=== PATIENT | male | born 1945 | race Caucasian/White ===

== ENCOUNTER 2024-06-04 03:49 | Emergency (ER) | payer BC ==
[2024-06-04 04:18] LABS: Bilirubin Negative (Negative); Blood, Urine Moderate (Negative); Clarity Clear (Clear); Glucose, Urine (Dipstick) Negative (Negative); Ketone, Urine Negative (Negative); Leukocyte Negative (Negative); Nitrite Negative (Negative); Protein, Urine (Dipstick) Negative (Neg-Trace); Urobilinogen 0.2 mg/dL (Less than 2)
[2024-06-04 04:21] LABS: Bacteria/HPF None Seen HPF (None Seen); CAUTI Indications for Culture Dysuria,urgency,freq; Squamous Epithelial None Seen HPF (0-3); Urine Culture Reflex No No; WBC/HPF None Seen HPF (0-3)
== END 2024-06-04 04:36 | disposition home or self-care (01) ==
LOC: NAV ERS 03:49
DX: R33.9 Retention of urine, unspecified (principal); R39.11 Hesitancy of micturition
CPT/HCPCS: 51702; 81001; 99283

== ENCOUNTER 2024-10-30 01:15 | Emergency (ER) | payer BC ==
[2024-10-30] MEDS ORDERED: Bisacodyl 10 MG SUPP ONE (01:35)
[2024-10-30 01:50] LABS: Clarity Clear (Clear); Leukocyte Negative (Negative); Protein, Urine (Dipstick) 30 mg/dL (Neg-Trace)
[2024-10-30 01:51] LABS: Blood, Urine Unable to Interpret (Negative); Nitrite Unable to Interpret (Negative)
[2024-10-30 01:52] LABS: Bacteria/HPF Rare-Few HPF (None Seen); Bilirubin Unable to Interpret (Negative); CAUTI Indications for Culture Dysuria,urgency,freq; Glucose, Urine (Dipstick) Unable to Interpret mg/dL (Negative); Ketone, Urine Unable to Interpret mg/dL (Negative); RBC/HPF Greater than 50 HPF (0-3); Squamous Epithelial None Seen HPF (0-3); Urobilinogen UNABLE TO INTERPRET mg/dL (Less than 2); WBC/HPF 0-3 HPF (0-3)
[2024-10-30 01:53] LABS: Urine Culture Reflex No No
[2024-10-30] MEDS ORDERED: Polyethylene Glycol 3350 17 GM Packet ONE (01:58)
[2024-10-30] MEDS ORDERED: Simethicone Chewable 80 MG TAB PO SCH (02:30)
== END 2024-10-30 02:34 | disposition home or self-care (01) ==
LOC: NAV ERS 01:15
DX: K59.00 Constipation, unspecified (principal); R33.9 Retention of urine, unspecified; I10 Essential (primary) hypertension; R00.0 Tachycardia, unspecified
CPT/HCPCS: 51702; 81001; 99283

== ENCOUNTER 2024-11-03 20:30 | Emergency (ER) | payer BC ==
[2024-11-03 21:15] LABS: Bilirubin Negative (Negative); Blood, Urine Large (Negative); Clarity Clear (Clear); Glucose, Urine (Dipstick) Negative (Negative); Ketone, Urine Negative (Negative); Leukocyte Negative (Negative); Nitrite Negative (Negative); Protein, Urine (Dipstick) Negative (Neg-Trace); Urobilinogen 0.2 mg/dL (Less than 2); pH, Urine 5.5 (5.0-9.0)
[2024-11-03 21:16] LABS: Specific Gravity, Urine 1.006 (1.002-1.036)
[2024-11-03 21:20] LABS: Bacteria/HPF None Seen HPF (None Seen); CAUTI Indications for Culture Dysuria,urgency,freq; Squamous Epithelial None Seen HPF (0-3); WBC/HPF 0-3 HPF (0-3)
[2024-11-03 21:21] LABS: Urine Culture Reflex No No
== END 2024-11-03 21:31 | disposition home or self-care (01) ==
LOC: NAV ERS 20:30
DX: R33.9 Retention of urine, unspecified (principal); R03.0 Elevated blood-pressure reading, without diagnosis of hypertension; R10.30 Lower abdominal pain, unspecified
CPT/HCPCS: 51702; 81001